=== PATIENT | male | born 1995 | race Caucasian/White ===

== ENCOUNTER 2017-04-11 04:19 | Emergency (ER) | payer OTHER ==
[2017-04-11] MEDS ORDERED: AMOXICILLIN TR/POT CLAVULANATE 500-125 MG TAB PO ONE (04:35)
--- NOTE | 2017-04-11 04:37 | ER Document Report ---
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 Occurred: Just prior to arrival Severity: None Pain Level: Denies Capillary refill: < 3 seconds Sensations intact: Yes Distal pulses present: Yes Associated Symptoms: None - Related Data Allergies/Adverse Reactions: No Known Allergies Allergy (Unverified 04/11/17 04:58) Past Medical History - Social History Smoking Status: Never Smoker Family History: Reviewed & Not Pertinent Review of Systems - Review of Systems Constitutional: No symptoms reported Skin: See HPI -: Yes All other systems reviewed and negative Physical Exam - Vital signs Vitals: Temp Pulse Resp BP Pulse Ox 98.7 F 86 14 128/59 H 96 04/11/17 04:44 04/11/17 04:44 04/11/17 04:44 04/11/17 04:44 04/11/17 04:44 - General General appearance: Appears well, Alert In distress: None - Cardiovascular Pulses: Normal: Radial Normal capillary refill: Yes - Extremities General upper extremity: Normal inspection, Nontender, Normal color, Normal ROM , Normal strength, Normal temperature - Skin Notes: bruising on right ring finger medial nail bed with minimal blood. 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 Patient states the dog bit his finger and noticed blood when he took off his glove but there is no puncture site visible. Patient will be treated prophylactically with Augmentin and follow-up with primary care. - Vital Signs Vital signs: Temp Pulse Resp BP Pulse Ox 98.7 F 86 14 128/59 H 96 04/11/17 04:44 04/11/17 04:44 04/11/17 04:44 04/11/17 04:44 04/11/17 04:44 Discharge - Discharge Clinical Impression: Animal bite Condition: Good Disposition: HOME, SELF-CARE Instructions: Animal Bites ([facility]), Augmentin ([facility]) Prescriptions: Amox Tr/Potassium Clavulanate [Augmentin 875-125 Tablet] 1 tab PO BID 10 Days tablet
[2017-04-11 04:54] VITALS: BP 128/59
== END 2017-04-11 05:06 | disposition home or self-care (01) ==
LOC: ER 04:19
DX: S61.254A Open bite of right ring finger without damage to nail, initial encounter (principal); W54.0XXA Bitten by dog, initial encounter
CPT/HCPCS: 99283